=== PATIENT | male | born 1965 | race Caucasian/White ===

== ENCOUNTER 2021-05-30 05:57 | Day surgery (SDC) | payer MEDICAID ==
[2021-05-24 11:22] LABS: BASOPHILS # (AUTO) 0.1 X10'3 (0-0.2); BASOPHILS % (AUTO) 0.5 % (0-1); EOSINOPHILS # (AUTO) 0.2 X10'3 (0-0.9); EOSINOPHILS % (AUTO) 1.3 % (0-6); LYMPHOCYTES # (AUTO) 1.8 X10'3 (1.1-4.8); LYMPHOCYTES % (AUTO) 15.6 % (21-51); MEAN CORPUSCULAR HEMOGLOBIN 31.9 PG (27.0-31.0); MEAN CORPUSCULAR HGB CONC 34.4 g/dL (33.0-36.5); MEAN CORPUSCULAR VOLUME 92.7 FL (78-98); MEAN PLATELET VOLUME 8.6 FL (7.4-10.4); MONOCYTES # (AUTO) 1.1 X10'3 (0-0.9); MONOCYTES % (AUTO) 8.9 % (2-12); NEUTROPHILS # (AUTO) 8.7 X10'3 (1.8-7.7); NEUTROPHILS % (AUTO) 73.7 % (42-75); PRE OP HEMATOCRIT 50.9 % (42.0-52.0); PRE OP HEMOGLOBIN 17.5 g/dL (14.0-17.9); PRE OP PLATELET COUNT 189 X10'3 (140-440); RED CELL DISTRIBUTION WIDTH 15.1 % (11.5-14.5)
[2021-05-24 11:37] LABS: ALBUMIN 4.1 G/DL (3.4-5.0); ALBUMIN/GLOBULIN RATIO 1.1 (1.1-1.5); ALKALINE PHOSPHATASE 75 IU/L (46-116); BLOOD UREA NITROGEN 11 MG/DL (7-18); BUN/CREATININE RATIO 11.3 (5.4-32.0); CALCIUM 8.8 MG/DL (8.5-10.1); CHLORIDE 105 MMOL/L (99-107); CREATININE 0.97 MG/DL (0.60-1.10); PRE OP ALT 18 U/L (30-65); PRE OP ANION GAP 7 (8-16); PRE OP AST 23 U/L (10-37); PRE OP BILIRUB, TOTAL 0.3 MG/DL (0.0-1.0); PRE OP GLUCOSE 91 MG/DL (70-104); PRE OP POTASSIUM 4.6 MMOL/L (3.4-5.1); PRE OP SODIUM 140 MMOL/L (135-145); TOTAL CARBON DIOXIDE 27.7 MMOL/L (24-32); TOTAL PROTEIN 7.7 G/DL (6.4-8.2); eGFR 81 ML/MIN
[2021-05-24 11:38] LABS: CLARITY,URINE CLEAR (Clear); COLOR,URINE YELLOW (Yellow); GLUCOSE, URINE NEGATIVE (Neg); KETONES,URINE NEGATIVE (Neg); LEUKOCYTE ESTERASE ,URINE NEGATIVE (Neg); NITRITES, URINE NEGATIVE (Neg); OCCULT BLOOD,URINE NEGATIVE (Neg); PH,URINE 5.5 (4.8-8.0); PROTEIN,URINE NEGATIVE (Neg); UROBILINOGEN,URINE 0.2 E.U/dL (0.2-1.0)
[2021-05-24 11:39] LABS: UA COLLECTION TYPE CLN CATCH MIDSTREAM
[~2021-05-30] VITALS: Ht 188 cm; Wt 105.0 kg
[2021-05-30] VITALS (21 sets, daily range): BP systolic 129–161; BP diastolic 59–105
[~2021-05-30 05:57] MED LIST: NO HOME MEDS; albuterol 2.5 MG/3 ML nebule NEB ONE; cefazolin/dext.iso 2gm/100ml IV ONE; famotidine 20mg tablet PO ONE; ringers solution, lacted 1,000 ML IV SCH
[2021-05-30] MEDS ORDERED: proCHLORperazine 10 MG/2 ml inj IV PRN (07:50)
[2021-05-30] MEDS ORDERED: ondansetron/PF 4mg/2ml inj IV PRN (07:50)
[2021-05-30] MEDS ORDERED: morphine 4 MG/ML inj SYRINge IV PRN (07:50)
[2021-05-30] MEDS ORDERED: morphine 2 MG/ML inj. syringe IV PRN (07:50)
[2021-05-30] MEDS ORDERED: meperidine/PF 25mg/ml syringe IV PRN ×3 (07:50)
[2021-05-30] MEDS ORDERED: ringers solution, lacted 1,000 ML IV SCH (07:50)
[2021-05-30] MEDS ORDERED: BUPIVAcaine/PF 2.5 mg/ml (0.25%) 30ml vial ONE (08:51)
[2021-05-30] MEDS ORDERED: ceFAZolin 1000mg inj ONE (08:51)
[2021-05-30] MEDS ORDERED: midazolam 1 mg/ML 2ml injection ONE (08:57)
[2021-05-30] MEDS ORDERED: fentaNYL /PF 50mcg/ml 5ml ampule ONE (08:58)
[2021-05-30] MEDS ORDERED: propofol inj 20 ML IV ONE (08:58)
[2021-05-30] MEDS ORDERED: sevoflurane 250ml liquid IH ONE (09:01)
[2021-05-30] MEDS ORDERED: rocuronium 10mg/ml inj IV ONE (09:13)
[2021-05-30] MEDS ORDERED: dexamethasone sod phosphate 4mg/ml inj. ONE (09:13)
[2021-05-30] MEDS ORDERED: glycopyrrolate 0.2mg/ml inj ONE (10:05)
[2021-05-30] MEDS ORDERED: neostigmine methylsulfate 1 MG/ML 10ml vial ONE (10:05)
[2021-05-30] MEDS ORDERED: acetaminophen 1,000mg/100ml IV 100 ML IV ONE (10:10)
[2021-05-30] MEDS ORDERED: ondansetron/PF 4mg/2ml inj ONE (10:12)
--- NOTE | 2021-05-30 10:28 | NUR ---
Received from OR via , accompanied by Anesthesiologist DENISA and report given by Anesthesiolgist. PT PRESENTS WITH 20G LEFT HAND, DRESSING DRY AND INTACT, VSS. Addendum: 05/30/21 at 1036 by Linda Montoya RN, RN Amended: Links added.
--- NOTE | 2021-05-30 12:17 | NUR ---
PT BLADDER SCANNED AND HAS 33MLS IN BLADDER AT THIS TIME. Addendum: 05/30/21 at 1218 by Linda Montoya RN RN Amended: Links added.
--- NOTE | 2021-05-30 12:47 | NUR ---
PT UPP OUT OF BED AND AMBULATED TO THE BATHROOM. PT UNABLE TO URINATE AT THIS TIME. Addendum: 05/30/21 at 1248 by Linda Montoya RN, RN Amended: Links added.
--- NOTE | 2021-05-30 13:29 | NUR ---
PT BLADDER SCANNED WITH 132 MSL IN BLADDER AT THIS TIME. Addendum: 05/30/21 at 1330 by Linda Montoya RN RN Amended: Links added.
--- NOTE | 2021-05-30 13:46 | NUR ---
PT TAKEN TO [facility] VIA [facility] TO ROOM 244 WITH FIDE DUKE RN AND DAVID SALINAS TO TAKE OVER CARE FOR PT. Addendum: 05/30/21 at 1347 by Linda Montoya RN RN Amended: Links added.
--- NOTE | 2021-05-30 13:50 | NUR ---
PT ARRIVED TO ROOM 246 VIA [facility], RECEIVED REPORT FROM VENKATESH SALINAS. PT IS GETTING UP AND GETTING DRESSED CURRENTLY IN BATHROOM.
--- NOTE | 2021-05-30 13:58 | NUR ---
PT ABLE TO VOID WITHOUT DIFFICULTY, VSS, PT REFUSING ANY FURTHER PAIN MEDS, PIV D/CD, D/C INSTRUCTIONS GIVEN TO PT-ALL QUESTIONS ANSWERED. TAKEN VIA W/C TO [facility] TO ASSIST.
== END 2021-05-30 13:58 | disposition home or self-care (01) ==
LOC: PAS 05:57
PROVIDERS: ATTEND Surgery
DX: K40.20 Bilateral inguinal hernia, without obstruction or gangrene, not specified as recurrent (principal); D17.6 Benign lipomatous neoplasm of spermatic cord; F17.210 Nicotine dependence, cigarettes, uncomplicated; Z79.899 Other long term (current) drug therapy; Z90.49 Acquired absence of other specified parts of digestive tract; Z72.89 Other problems related to lifestyle
CPT/HCPCS: 36415; 49650; 80053; 81003; 82948; 85025; 93005; C1781; J0131; J0690; J1100; J2175; J2250; J2405; J2704; J2710; J3010; J3490; A4215; A4314; A4618; A6258; J7120